=== PATIENT | female | born 1970 | race African-American/Black ===

== ENCOUNTER 2019-07-27 07:50 | Emergency (ER) | payer OTHER, SELFPAY ==
[2019-07-27 07:47] VITALS: BP 151/107; PULSE 124; RESP 20; TEMP 36.9; O2SAT 96
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
[2019-07-27] MEDS: TETANUS,DIPHTHERIA,AC PERTUSSIS ADULT 0.5 ML (ADACEL) IM (08:22)
[2019-07-27] MEDS: LACTATED RINGERS 1,000 ML 999 ML IV CONT (08:29)
--- NOTE | 2019-07-27 08:32 | PC.NURSE ---
IV initiated, pt requesting food. Explained that the plastic surgeon will be coming to repair the wound and want pt to stay npo in case of needing to go to the OR for any reason.
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
--- NOTE | 2019-07-27 10:31 | PC.NURSE ---
Pt out to desk, note bandage has fallen off/removed per patient. Updated again on delay with plastic surgeon. Pt requests ERP to sew it up, explained that the plastic surgeon is a specialist and that he would be the one to do it.
--- NOTE | 2019-07-27 11:02 | PC.NURSE ---
Pt moved to ED RM [address] Perez. Report to Heather FRAGA, to continue care.
--- NOTE | 2019-07-27 11:05 | PC.NURSE ---
care assumed for this pt. pt in room with friend at bedside. no bleeding noted. waiting plastics arrival for wound repair.
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
--- NOTE | 2019-07-27 12:55 | PM.PROC ---
Procedure Note - Detailed Date of procedure: 07/27/19 Pre-op diagnosis: Lip Laceration Procedure performed: Complex repair of lower lip laceration measuring 3.2 cm Description of procedure: After consent was obtained 1% lidocaine and 0.25% Marcaine with epinephrine was used anesthetize locally. I prepped and draped in a standard sterile fashion using a Betadine solution. I then irrigated the wound and debrided just was absolutely necessary to debride.. Muscle was repaired with 4-0 Monocryl. This was followed by 5 0 nylon at the vermilion border and the skin was repaired with 5 0 nylon. I repaired the red lip with 5 0 chromic. She tolerated the procedure well. Anesthesia: local Surgeon: Mich Perez MD Estimated blood loss (mL): 1 Drains: No Packing: No Pathology: none sent Complications: No immediate complications Condition: stable Findings: She is provided full list of instructions. Understands what monitor for. She will call with any questions or concerns.
== END 2019-07-27 12:59 | disposition home or self-care (01) ==
PROVIDERS: Emergency Provider Emergency Medicine
DX: S01.511A Laceration without foreign body of lip, initial encounter (principal); Z23 Encounter for immunization; F17.210 Nicotine dependence, cigarettes, uncomplicated; Y04.0XXA Assault by unarmed brawl or fight, initial encounter
CPT/HCPCS: 40650; 90471; 90715; 96360; 99283; J7120

== ENCOUNTER 2019-08-28 19:53 | Emergency (ER) | payer OTHER, SELFPAY ==
--- NOTE | 2019-08-28 19:56 | PC.NURSE ---
Patient refusing to wear wrist band, states I do not believe in you or the things you're saying to me. I'm [employer] and my dad is coming. Explained to patient that the wrist band is our way of identification and how we can safely administer medications. Patient stated, I do not care, my orthodox says I can't. I don't believe you.
[2019-08-28 20:04] VITALS: BP 111/94; PULSE 112; RESP 20; TEMP 36.6; O2SAT 95
--- NOTE | 2019-08-28 20:40 | PC.NURSE ---
Patient standing in parking lot speaking to PD. Security with patient as well.
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
--- NOTE | 2019-08-28 21:00 | PC.NURSE ---
Per security, patient stated she was not a patient and that she only came in to use the bathroom. Per PD and security, patient escorted to bus stop per patient request. PD stated to security patient has been seen walking around [place]. Patient alert and oriented when she was in triage, stated to PD and security she did not need to be seen. tank storage supervisor notified of situation. 2100 security out to bus stop to check on patient, patient was not at bus stop. Security walked around the hospital and patient not here. ED milker machine aware of situation.
== END 2019-08-28 21:00 | disposition left against medical advice (07) ==
DX: Z53.21 Procedure and treatment not carried out due to patient leaving prior to being seen by health care provider (principal)
CPT/HCPCS: 99199

== ENCOUNTER 2020-07-06 16:48 | Emergency (ER) | payer OTHER, SELFPAY ==
[2020-07-06 17:00] VITALS: BP 136/84; PULSE 87; RESP 16; TEMP 36.4; O2SAT 98
[2020-07-06 17:41] LABS: Basophils Percent Auto 0.5 % (0.2-1.2); Eosinophils Absolute Auto 0.2 K/mm3 (0-0.3); Eosinophils Percent Auto 3.5 % (0-4.4); Hematocrit 34.9 % (37.0-47.0); Hemoglobin 11.6 g/dL (12.0-15.0); Immature Granulocyte Absolute 0.01 K/mm3 (0.00-0.031); Immature Granulocyte Percent A 0.2 % (0-0.5); Lymphocytes Absolute Auto 3.63 K/mm3 (0.9-3.2); Lymphocytes Percent Auto 59.8 % (18.3-44.2); Mean Corpuscular HGB Conc 33.2 g/dl (32-36); Mean Corpuscular Hemoglobin 30.4 pg (26-34); Mean Corpuscular Volume 91.4 fl (80-100); Monocytes Absolute Auto 0.2 K/mm3 (0.1-0.6); Monocytes Percent Auto 3.3 % (2.6-8.5); Neutrophils Percent Auto 32.7 % (45.5-73.1); Platelet Count Result 265 k/mm3 (150-375); Red Blood Count 3.82 M/mm3 (4.2-5.4); Red Cell Distribution Width 14.7 % (11.5-14.5); White Blood Count 6.1 K/mm3 (4.5-10.0)
[2020-07-06 17:55] LABS: Alanine Aminotransferase 16 U/L (4-35); Albumin Level 4.6 g/dL (3.5-5.1); Alkaline Phosphatase 79 U/L (38-126); Anion Gap 9 mmol/L (8-16); Aspartate Amino Transferase 27 U/L (14-36); Bilirubin,Total 0.4 mg/dL (0.2-1.3); Blood Urea Nitrogen 22 mg/dL (7-17); Calcium 9.6 mg/dL (8.4-10.2); Carbon Dioxide 26 mmol/L (22-30); Chloride 107 mmol/L (98-107); Estimated CRCL calculation 42 ml/min; Estimated Glomerular Filt Rate 48; Glucose 102 mg/dL (65-105); Potassium 4.3 mmol/L (3.4-5.0); Sodium 142 mmol/L (137-145)
[2020-07-06 18:34] LABS: Ethanol 368 mg/dL (<10)
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
[2020-07-06] MEDS: SODIUM CHLORIDE 0.9% IV 1,000 ML 999 ML IV CONT (18:55)
[2020-07-06] MEDS: diazePAM INJ (*CRX) 10 MG/2 ML SYRINGE (18:55)
[2020-07-06] MEDS: OLANZapine 10 MG INJ VIAL IM (18:56)
[2020-07-06] MEDS: WATER, STERILE FOR INJECTION 10 ML VIAL XX (18:56)
[2020-07-06 19:30] VITALS: BP 152/76; PULSE 88; RESP 20; O2SAT 98
--- NOTE | 2020-07-06 20:11 | PC.NURSE ---
pt remains in locked restraints, remains agitated, cursing at staff, pt reminded of behaviors needed to come out of restraint. provider aware, no nno
--- NOTE | 2020-07-06 22:11 | PC.NURSE ---
pt removed from 4pt restraints at 2058, no injuries to pt pt ambulated to bathroom, drink given
[2020-07-06 22:17] VITALS: BP 97/69; PULSE 74; RESP 18; O2SAT 98
[2020-07-06 22:25] LABS: Add Urine Microscopic? YES; Amorphous Sediment Urine Few; Appearance Urine Cloudy (Clear); Bacteria Urine Trace /hpf; Bilirubin Urine Negative (Negative); Blood Urine Negative (Negative); Color Urine Straw (Yellow); Glucose Urine UA Negative (Negative); Ketones Urine Negative (Negative); Leukocyte Esterase Ur 1+ LEU/UL (Negative); Mucus Urine Rare /lpf; Nitrate Urine Negative (Negative); Protein Urine Negative (Negative); RBC Urine 0-2 /hpf (0-2); Specific Grav Ur 1.006 (1.001-1.035); Squamous Epithelial Cell Urine Many /hpf (Few); Urobilinogen Urine Negative mg/dL (<2.0)
[2020-07-06 22:50] LABS: Amphetamine Screen Urine Negative (Negative); Barbiturate Screen Urine Negative (Negative); Benzodiazepines Screen Urine Negative (Negative); Cannabinoid Screen Urine Positive (Negative); Cocaine Screen Urine Negative (Negative); Methadone Screen Urine Negative (Negative); Opiate Screen Urine Negative (Negative); Phencyclidine Screen Urine Negative (Negative)
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
[2020-07-07 02:22] LABS: Ethanol 262 mg/dL (<10)
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
--- NOTE | 2020-07-07 07:04 | PC.NURSE ---
breakfast tray ordered for pt.
[2020-07-07 09:00] VITALS: BP 160/98; PULSE 80; RESP 16; TEMP 36.6; O2SAT 100
--- NOTE | 2020-07-07 09:23 | PC.NURSE ---
DR GEE STATES IT'S OK TO NOT HAVE SITTER AT BEDSIDE SINCE PT IS CALM, COOPERATIVE AND NO RISK ON SUICIDE SCALE. PT IS AWARE SHE IS TO STAY IN DEPARTMENT AWAITING REPEAT LAB DRAW AND AN INITIAL CRISIS EVALUATION
[2020-07-07 11:33] LABS: Ethanol 133 mg/dL (<10)
--- NOTE | 2020-07-07 12:02 | PC.NURSE ---
PT ADVISED THAT HER ETOH LEVEL IS STILL TOO HIGH FOR CRISIS TO COME EVALUATE HER. REMAINS CALM AND COOPERATIVE. WILL REDRAW AT 1330 TO ENSURE LEVEL IS BELOW 80
--- NOTE | 2020-07-07 12:05 | PC.NURSE ---
LUNCH TRAY ORDERED
[2020-07-07 12:38] VITALS: BP 158/100; PULSE 89; RESP 18; O2SAT 100
[2020-07-07 17:44] LABS: SARS-CoV-2 RNA PCR Negative
== END 2020-07-07 12:40 | disposition home or self-care (01) ==
PROVIDERS: Family Medicine; Emergency Provider Emergency Medicine
DX: F10.10 Alcohol abuse, uncomplicated (principal); R45.6 Violent behavior; Z20.822 Contact with and (suspected) exposure to COVID-19; S61.502A Unspecified open wound of left wrist, initial encounter; S61.501A Unspecified open wound of right wrist, initial encounter; Y90.8 Blood alcohol level of 240 mg/100 ml or more; F17.210 Nicotine dependence, cigarettes, uncomplicated; W26.9XXA Contact with unspecified sharp object(s), initial encounter
CPT/HCPCS: 36415; 80053; 80307; 81001; 84443; 85025; 96361; 96372; 96374; 99284; C9803; J3360; J7030; U0003; U0005

== ENCOUNTER → 2020-08-05 00:14 | Outpatient (CLI) | payer OTHER, SELFPAY ==
[2020-08-05 18:19] LABS: SARS-CoV-2 RNA PCR Negative
== END ==
PROVIDERS: Visit Provider Obstetrics & Gynecology Gynecology
DX: Z01.812 Encounter for preprocedural laboratory examination (principal); Z20.822 Contact with and (suspected) exposure to COVID-19
CPT/HCPCS: C9803; U0003; U0005

== ENCOUNTER → 2020-08-26 02:00 | Outpatient (CLI) | payer OTHER, SELFPAY ==
[2020-08-27 08:28] LABS: SARS-CoV-2 RNA PCR Negative
== END ==
PROVIDERS: Visit Provider Obstetrics & Gynecology Gynecology
DX: Z01.812 Encounter for preprocedural laboratory examination (principal); Z20.822 Contact with and (suspected) exposure to COVID-19
CPT/HCPCS: C9803; U0003; U0005

== ENCOUNTER 2020-08-29 01:19 | Day surgery (SDC) | payer OTHER, SELFPAY ==
[2020-08-02 15:07] VITALS: BMI 32.8
--- NOTE | 2020-08-08 07:51 | P.HP_ITS ---
History of Present Illness History of Present Illness Consent: Risks, benefits, and alternatives have been discussed and questions answered. Patient agrees to proceed with procedure. Chief complaint: Post Menopausal Bleeding Narrative: Cesia Rosen is a 50 year old female with episode of postmenopausal bleeding. U/s showed thickened endometrium. Recommend to evaluate with hysteroscopy and D&C. Reviewed risks of infection, bleeding, perforation, and possible pathology. Agrees to proceed. Review of Systems Review of Systems: Narrative: not repeated day of surgery; patient states no changes in status [facility] Past Medical History Medical History (Updated 08/08/20 @ 08:15 by Nayana Medina MD) GERD (gastroesophageal reflux disease) HTN (hypertension) No significant past medical history Osteoarthritis Surgical History Surgical History (Updated 08/08/20 @ 08:14 by Nayana Medina MD) History of unilateral salpingectomy Right for ruptured ectopic No significant past surgical history Social History Social History Smoking status: Current every day smoker Tobacco type: cigarettes Second hand tobacco smoke exposure: Yes Additional smoking assessment comments: 1/2ppd x 35years Alcohol intake: current Drinks per week: 7 Alcohol use details: daily use,gin Substance use: current Substance use type: marijuana Other substance usage details: smokes daily Living arrangements: with family Additional living arrangements comments: lives with uncle Gender identity (if verbalized by the patient): Female Spiritual care concerns: No Meds Home Medications and Allergies Home Medications Medication Instructions Recorded Confirmed Type cyclobenzaprine 10 mg PO BID 07/07/20 08/02/20 History folic acid 1 mg PO DAILY 07/07/20 08/02/20 History meloxicam 15 mg PO BID 07/07/20 08/02/20 History metoprolol succinate 50 mg PO DAILY 07/07/20 08/02/20 History tramadol [Ultram] 50 mg PO BID 07/07/20 08/02/20 History trazodone 100 mg PO HS 07/07/20 08/02/20 History albuterol sulfate 1 puff INHALATION DAILY 08/02/20 08/02/20 History Allergies Allergy/AdvReac Type Severity Reaction Status Date / Time No Known Allergies Allergy Verified 08/02/20 14:37 Exam Const: General: healthy appearing and alert Orientation/consciousness: patient oriented x3 Resp: Effort & Inspection: normal respiratory effort Auscultation: clear to auscultation bilaterally Cardio: Rate: regular rate Rhythm: regular rhythm GI: GI Palp: Yes Soft to palpation, No Tenderness to palpation present (GI) and No Palpable mass present : External Female Exam: normal external appearance Speculum Exam - Vagina: normal appearance of the vagina and normal vaginal discharge Speculum Exam - Cervix: normal appearance of the cervix Bimanual exam- vagina & uterus: uterine size normal and consistency normal Bimanual Exam- Adnexa, other: normal adnexae and No adnexal tenderness Neuro: General: patient oriented x3 Assessment and Plan Assessment and plan (1) Post-menopausal bleeding: Code(s): N95.0 - Postmenopausal bleeding Status: Acute Assessment and Plan: proceed with D&C hysteroscopy
--- NOTE | 2020-08-08 07:51 | WPDHPUPDATE1 ---
History and Physical Update Update Date/Time: 08/08/20 07:51 History and Physical has been reviewed, including an updated exam of the patient. There are NO changes in the patient's condition. Risks, benefits, and alternatives have been discussed and questions answered. Patient agrees to proceed with procedure.
--- NOTE | 2020-08-23 09:58 | PC.NURSE ---
Per patient there has been no changes in medications or health history since last interview. RN gave new instructions to patient for surgery time.
--- NOTE | 2020-08-29 07:30 | P.HP_ITS ---
History of Present Illness History of Present Illness Consent: Risks, benefits, and alternatives have been discussed and questions answered. Patient agrees to proceed with procedure. Chief complaint: Post Menopausal Bleeding Narrative: Cesia Rosen is a 50 year old female who is 3 years postmenopausal with a 7 day bleeding episode. U/s done and lining is thickened. Recommend hysteroscopy with D&C. Possible pathology as well as risks were reviewed. Risks of infection, bleeding, and perforation were discussed. Patient agrees to proceed. Review of Systems Review of Systems: Narrative: not repeated day of surgery; patient states no changes in status FORMERLY [facility], [facility]–1983 Past Medical History Medical History (Updated 08/29/20 @ 07:33 by Nayana Medina MD) GERD (gastroesophageal reflux disease) HTN (hypertension) Osteoarthritis Surgical History Surgical History (Updated 08/29/20 @ 07:33 by Nayana Medina MD) History of unilateral salpingectomy Right for ruptured ectopic Social History Social History Smoking status: Current every day smoker Tobacco type: cigarettes Second hand tobacco smoke exposure: Yes Additional smoking assessment comments: 1/2 pack of cigarettes per day. Alcohol intake: current Drinks per week: 7 Alcohol use details: daily use,gin Substance use: current Substance use type: marijuana Other substance usage details: smokes daily Living arrangements: with family Additional living arrangements comments: lives with uncle Gender identity (if verbalized by the patient): Female Spiritual care concerns: No Meds Home Medications and Allergies Home Medications Medication Instructions Recorded Confirmed Type cyclobenzaprine 10 mg PO BID 07/07/20 08/02/20 History folic acid 1 mg PO DAILY 07/07/20 08/02/20 History meloxicam 15 mg PO BID 07/07/20 08/02/20 History metoprolol succinate 50 mg PO DAILY 07/07/20 08/02/20 History tramadol [Ultram] 50 mg PO BID 07/07/20 08/02/20 History trazodone 100 mg PO HS 07/07/20 08/02/20 History albuterol sulfate 1 puff INHALATION DAILY 08/02/20 08/02/20 History Allergies Allergy/AdvReac Type Severity Reaction Status Date / Time No Known Allergies Allergy Verified 08/02/20 14:37 Exam Const: General: comfortable Resp: Effort & Inspection: normal respiratory effort Auscultation: clear to auscultation bilaterally Cardio: Rate: regular rate Rhythm: regular rhythm GI: GI Palp: No abdominal tenderness, Yes Soft to palpation and No Palpable mass present : External Female Exam: normal external appearance Speculum Exam - Vagina: normal appearance of the vagina Speculum Exam - Cervix: normal appearance of the cervix Bimanual exam- vagina & uterus: normal bimanual exam Assessment and Plan Assessment and plan (1) Post-menopausal bleeding: Code(s): N95.0 - Postmenopausal bleeding Status: Acute Assessment and Plan: Plan to proceed with hysteroscopy with D&C
--- NOTE | 2020-08-29 07:30 | WPDHPUPDATE1 ---
History and Physical Update Update Date/Time: 08/29/20 07:30 History and Physical has been reviewed, including an updated exam of the patient. There are NO changes in the patient's condition. Risks, benefits, and alternatives have been discussed and questions answered. Patient agrees to proceed with procedure.
[2020-08-29 08:01] VITALS: BP 175/109; PULSE 84; RESP 18; TEMP 36.1; O2SAT 100
--- NOTE | 2020-08-29 08:09 | ECG_ITS ---
Measurements Intervals [place] Rate: 75 P: 46 KS: 160 QRS: 42 QRSD: 90 T: 42 QT: 383 QTc: 429 Interpretive Statements SINUS RHYTHM BASELINE ARTIFACT- I, III, AVR, AVL, AVF NORMAL ECG Electronically Signed On 08-29-2020 8:25:26 PROOF CARRIER by Ever Carroll D.O.
--- NOTE | 2020-08-29 08:29 | WPDANESEPPF ---
Anes - Initial Pre Proc Eval Procedure: Operation Date: 08/29/20 10:15 Proposed Procedures p Hysteroscopy Dilation and Curettage - Nayana Medina MD Date/Time: 08/29/20 08:29 Surgeon: Nayana Medina MD Pre Op Diagnosis: Post Menopausal Bleeding Patient Data Age: 50 Gender: F Height: 1.65 m Weight: 89.54 kg Allergies Allergy/AdvReac Type Severity Reaction Status Date / Time No Known Allergies Allergy Verified 08/29/20 08:59 Home Medications Medication Instructions Recorded Confirmed Type cyclobenzaprine 10 mg PO BID 07/07/20 08/29/20 History folic acid 1 mg PO DAILY 07/07/20 08/29/20 History meloxicam 15 mg PO BID 07/07/20 08/29/20 History metoprolol succinate 50 mg PO DAILY 07/07/20 08/29/20 History tramadol [Ultram] 50 mg PO BID 07/07/20 08/29/20 History trazodone 100 mg PO HS 07/07/20 08/29/20 History albuterol sulfate 1 puff INHALATION DAILY 08/02/20 08/29/20 History Patient hx anesthesia problems: none Family hx anesthesia problems: none PMFSH Past Medical History Medical History (Updated 08/29/20 @ 08:30 by Cipriano Boateng MD) Bipolar 1 disorder COPD (chronic obstructive pulmonary disease) Emphysema lung GERD (gastroesophageal reflux disease) HTN (hypertension) Osteoarthritis Surgical History Surgical History (Updated 08/29/20 @ 07:33 by Nayana Medina MD) History of unilateral salpingectomy Right for ruptured ectopic Social History Social History Smoking status: Current every day smoker Tobacco type: cigarettes Second hand tobacco smoke exposure: Yes Additional smoking assessment comments: 1/2 pack of cigarettes per day. Alcohol intake: current Drinks per week: 7 Alcohol use details: daily use,gin Substance use: current Substance use type: marijuana Other substance usage details: smokes daily Living arrangements: with family Additional living arrangements comments: lives with uncle Gender identity (if verbalized by the patient): Female Spiritual care concerns: No Anes - Eval Final PreProcedure Day of Procedure 08/29/20 08:29 Patient weight: obese Heart: regular rate and rhythm Lungs: clear to auscultation and normal air movement Airway: Mallampati scale class II Neurological: alert and oriented Last oral intake: >/= 8 hours ASA classification: III Emergent: no Anesthetic plan: proceed Anesthesia type and monitoring: general LMA Informed Consent: The patient's anesthetic plan and its attendant risks and benefits were discussed with the patient/family/POA. Questions were solicited and answers provided to the satisfaction of the patient/family/POA.
[2020-08-29] MEDS: LACTATED RINGERS 1,000 ML 30 ML IV CONT (08:50)
[2020-08-29] MEDS: hydrALAZINE HCL 20 MG/ML VIAL 5 MG IV PUSH (08:54)
[2020-08-29] MEDS: ACETAMINOPHEN 500 MG TABLET 1000 MG PO (08:54)
--- NOTE | 2020-08-29 10:34 | PM.PROC ---
Procedure Note - Detailed Date of procedure: 08/29/20 Pre-op diagnosis: Post Menopausal Bleeding Post-op diagnosis: same Procedure performed: D&C hysteroscopy with myosure Description of procedure: The patient is taken to the operating room placed under anesthesia in the dorsal lithotomy position. She is prepped and draped in the usual sterile fashion. [place] speculum was placed in the vagina and the cervix was grasped on the anterior lip with a tenaculum. The external os is stenotic therefore the os Finders are used to open the cervix. The uterus is then able to be sounded to 7cm. The cervix is serially dilated with [place] to an 8. The diagnostic hysteroscope is placed with the above-stated findings. The MyoSure device is opened and placed and the polyp as well as the thickened lining anteriorly are removed under direct visualization with the MyoSure device. Instruments are removed and the medium sharp curette is used to curette the endometrium until a good uterine cry was noted in all areas. All instruments were then removed. Sponge, instrument, and needle counts are correct per the OR staff. Anesthesia: MAC and local Surgeon: Nayana Medina MD Estimated blood loss (mL): 5 Drains: No Packing: No Pathology: yes (endometrial curettings and shavings) Complications: No immediate complications Condition: stable Disposition: PACU Findings: small polyp Right lateral near cervical endometrial junction; thickened anterior fundal wall
[2020-08-29 10:39] VITALS: BP 132/82; PULSE 75; RESP 18; O2SAT 100
[2020-08-29 11:09] VITALS: BP 160/108; PULSE 70; RESP 18
[2020-08-29] MEDS: hydrALAZINE HCL 20 MG/ML VIAL 10 MG IV PUSH (11:15)
[2020-08-29 11:25] VITALS: BP 179/98; PULSE 71; RESP 18
== END 2020-08-29 11:35 | disposition home or self-care (01) ==
PROVIDERS: PCP Family Medicine; Visit Provider Obstetrics & Gynecology Gynecology
PROC: 0U5B8ZZ Destruction of Endometrium, Via Natural or Artificial Opening Endoscopic (ICD-10-PCS; CPT 58563; principal; 2020-08-29 10:15)
DX: N95.0 Postmenopausal bleeding (principal); N84.0 Polyp of corpus uteri; I10 Essential (primary) hypertension; J44.9 Chronic obstructive pulmonary disease, unspecified; F31.9 Bipolar disorder, unspecified; M19.90 Unspecified osteoarthritis, unspecified site; F17.210 Nicotine dependence, cigarettes, uncomplicated; F12.90 Cannabis use, unspecified, uncomplicated; E66.9 Obesity, unspecified; Z68.34 Body mass index [BMI] 34.0-34.9, adult
CPT/HCPCS: 58558; 88305; 93005; A9270; J0360; J2250; J2704; J3010; J7030; J7120